=== PATIENT | male | born 1945 | race Caucasian/White ===

== ENCOUNTER → 2016-06-06 | Outpatient (CLI) | payer OTHER, BC | LOC: MMPC 09:00 | PROVIDERS: ATTEND Physician Assistant Medical | DX: L30.8 Other specified dermatitis (principal) | CPT/HCPCS: 99213; G0463 ==

== ENCOUNTER → 2016-06-14 | Outpatient (CLI) | payer OTHER, BC ==
[2016-06-14 14:04] LABS: ASPARTATE AMINO TRANSFERASE 31 IU/L (21-57); BILIRUBIN,TOTAL 0.5 mg/dL (0.3-1.2); BLOOD UREA NITROGEN 8 mg/dL (7-22); BUN/CREATININE RATIO 11.42 (6-20); CALCIUM 9.6 mg/dL (8.7-10.7); CHLORIDE 104 meq/L (98-112); CREATININE 0.7 mg/dL (0.70-1.50); EST GLOMERULAR FILTRATION > 60 (>60 ml/min/1.73m(2)); GLUCOSE 96 mg/dL (78-110); HDL CHOLESTEROL 54 mg/dL (40-150); POTASSIUM 4.4 meq/L (3.8-5.2); SODIUM 139 meq/L (135-145); TOTAL PROTEIN 7.3 g/dL (6.1-8.0); TRIGLYCERIDES 343 mg/dL (44-200)
[2016-06-14 15:38] LABS: BASOPHILS # (AUTO) 0.14 10*3/UL; BASOPHILS % (AUTO) 1.4 % (0-1); EOSINOPHILS % (AUTO) 5.3 % (0-8); HEMATOCRIT 38.8 % (42.0-52.0); HEMOGLOBIN 14.3 g/dL (14.0-18.0); IMM GRAN % (AUTO) 0.6 % (0-5); IMM GRAN# (AUTO) 0.06 10*3/UL; LYMPHOCYTES % (AUTO) 39.4 % (10-50); MEAN CORPUSCULAR HGB CONC 36.9 g/dL (33-37); MEAN PLATELET VOLUME 8.6 FL (7.4-12.2); MONOCYTES # (AUTO) 1.31 10*3/UL (0.3-0.8); MONOCYTES % (AUTO) 12.9 % (5-15); NEUTROPHILS % (AUTO) 40.4 % (50-80); PLATELET MORPHOLOGY COMMENT NORMAL MORPHOLOGY (NORM); RDW COEFFICIENT OF VARIATION 17.2 % (11.5-14.5); RED BLOOD COUNT 4.08 10^6/uL (4.70-6.10); RETIC COUNT 0.0694 10(6)/uL (0.0380-0.1130); WHITE BLOOD COUNT 10.15 10^3/uL (4.8-10.8)
== END ==
LOC: LAB 13:26
PROVIDERS: ATTEND Internal Medicine
DX: D58.9 Hereditary hemolytic anemia, unspecified (principal); E78.5 Hyperlipidemia, unspecified; K21.9 Gastro-esophageal reflux disease without esophagitis; F17.201 Nicotine dependence, unspecified, in remission
CPT/HCPCS: 36415; 80053; 80061; 82550; 82728; 83615; 85025; 85045

== ENCOUNTER → 2016-06-23 | Outpatient (CLI) | payer OTHER, BC | LOC: MMPC 11:11 | PROVIDERS: ATTEND Internal Medicine | DX: J44.9 Chronic obstructive pulmonary disease, unspecified (principal); D64.9 Anemia, unspecified; E78.5 Hyperlipidemia, unspecified | CPT/HCPCS: 99214; G0463 ==

== ENCOUNTER → 2016-08-15 | Outpatient (CLI) | payer OTHER, BC | LOC: MMPC 11:11 | PROVIDERS: ATTEND Internal Medicine | DX: K62.5 Hemorrhage of anus and rectum (principal) | CPT/HCPCS: 99213; G0463 ==

== ENCOUNTER → 2016-09-01 08:13 | Emergency (ER) | payer OTHER, BC ==
[~2016-09-01 08:13] MED LIST: IPRATROPIUM/ALBUTEROL SULFATE 3 ML NEB NEB ONE; LEVOFLOXACIN 250 MG TABLET PO ONE; LEVOFLOXACIN 500 MG TABLET PO ONE; methylPREDNISolone 125 MG/2 ML VIAL IVP ONE
[2016-09-01] MEDS: NORMAL SALINE 10 ML SYRINGE FLUSH IVP PRN ×2 (08:20→10:08)
[2016-09-01 08:38] VITALS: TEMP 97.6
--- NOTE | 2016-09-01 08:41 | EKG ---
[address] [address] Measurements Intervals [place] Rate: 105 P: CT: 0 QRS: 54 QRSD: 112 T: 62 QT: 363 QTc: 424 Interpretive Statements SUPRAVENTRICULAR TACHYCARDIA PROBABLE ATRIAL FLUTTER LOW QRS VOLTAGE IN PRECORDIAL LEADS RIGHT BUNDLE BRANCH BLOCK POSSIBLE SEPTAL MYOCARDIAL INFARCTION PROBABLY OLD Compared to ECG 12/20/2015 09:43:34 Right bundle-branch block now present Myocardial infarct finding now present Sinus tachycardia no longer present T-wave abnormality no longer present Electronically Signed On 09-01-16 11:04:05 MDT by Phong Brewer [email or web address]
--- NOTE | 2016-09-01 08:43 | PDOC ---
Dyspnea HPI - General Chief Complaint: Dyspnea Stated Complaint: DYSPNEA SINCE MONDAY Date Seen by Provider: 09/01/16 Time Seen by Provider: 08:39 - History of Present Illness Initial Comments: Patient is a very nice 71-year-old gentleman who has for about 2-3 days has been having increasing dyspnea shortness of breath and cough. He thinks she's had a low-grade temperature up to around 100. He has had cardiac issues including cardiac stent placement known coronary artery disease never had congestive heart failure or fluid overload that he is aware of. He has had a couple neb treatments morning don't seem to really be helping him so far. He denies any active chest pain. Denies any nausea vomiting diarrhea or other illness sort of symptoms. He is coughing up some sputum which he says is marrero in color. - Patient Home Medications Home Medications: Home Medications Multivitamins W-Minerals [Multivitamin] 1 each PO DAILY 03/17/10 Aspirin 1 tab ORAL DAILY #0 tab 05/07/12 Ascorbic Acid [Ascorbic Acid with Rh] 1 tab PO BID #60 tab 07/26/13 Finasteride 1 tab PO DAILY #0 tab 01/19/16 Gabapentin 1 cap ORAL TID #0 capsule 01/19/16 Nitroglycerin SL Tab [Nitrostat Sl Tab] 0.4 mg SL PRN PRN #1 bottle 01/19/16 Albuterol Sulfate [Proair Hfa] 1 - 2 puff INH Q4-6H #1 inhaler 06/23/16 Fluticasone Furoate [Arnuity Ellipta] 1 puff INH QD #10 puff 06/23/16 Losartan Potassium 1 tab PO QD #30 tab 06/23/16 Metoprolol Succinate 1 tab PO DAILY #30 tab 06/23/16 Omeprazole 1 cap PO QPM #30 cap 06/23/16 Simvastatin 1 tab ORAL QHS #30 tab 06/23/16 Umeclidinium Brm/Vilanterol Tr [Anoro Ellipta 62.5-25 Mcg Inh] 1 each IH QD #10 inh 06/23/16 Acetaminophen [Tylenol] 1,000 mg PO PRN PRN 09/01/16 - Patient Allergies Allergies/Adverse Reactions: Allergies Allergy/AdvReac Type Severity Reaction Status Date / Time tirofiban HCl monohydrate Allergy Severe CONVULSIONS Verified 05/25/17 08:27 [From Aggrastat] Past Medical History - heen HEENT History: Denies History, Hard of Hearing Additional HEENT History: WEARS GLASSES, HAGER'S ESOPHAGUS Cardiovascular History: Previous KS, CAD Additional Cardiovasular History: KS's in 2000, 2001 and 2012--each KS included stent placements for a total of 3 stents (one per KS). 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 Psychiatric History: Denies History History of Sexually Transmitted Diseases: No Male Reproductive History: Denies History Cancer History: Denies History In Past Year Been Physically Harmed or Verbally Threatened: No History of MDRO: No History of Other Communicable Diseases: No Tobacco Use: Former Smoker Alcohol Use: Occasionally How much alcohol do you normally drink a day?: DAILY Substance Use Type: None Previous Surgical History: Yes Type / Date of Surgery: CORONARY ANGIOGRAM/CORONARY STENT/UPPER ENDOSCOPY/ INGUINAL HERNIORRHAPHY/ORTHOSCOPIC SHOULDER SURGERY/L ELBOW SURGERY/L LEG PINNING/ROTATOR CUFF REPAIR/VERTEBRAL FUSION/LICHA/SILVANO Anesthesia Reactions: No Malignant Hyperthermia: No Significant Family History: Heart disease Past Medical History Reviewed: Reviewed - No Changes ROS - Limitations ROS Limitations: No Limitations Constitution: REPORTS: Denies Symptoms Neurological: REPORTS: Denies Neuro Symptoms Gastrointestinal: REPORTS: Denies GI Symptoms Dyspnea Physical Exam - General Appearance General Appearance: REPORTS: Alert, Cooperative, No Acute Distress - HEENT HEENT: POSITIVE: Head Inspection Nml, Other (He does have some erythema in his oropharynx no obvious purulence ulcerations or other abnormal findings there. Neck is supple without lymphadenopathy.) - Respiratory Respiratory: REPORTS: Other (Patient has increased work of breathing. He has fairly clear breath sounds but clearly labored. He does have frequent cough.) - Cardiovascular Cardiovascular: REPORTS: Regular Rate and Rhythm (Regular rate and rhythm) - Abdomen Abdomen: Soft: (All Quadrants), Normal Bowel Sounds: (All Quadrants), Denies Tenderness: (All Quadrants) - Skin Skin: REPORTS: Intact, Normal For Race, Warm, Dry - Neurological / Psychological Neurological: POSITIVE: Affect Apporpriate Vital Signs - Recent Vital Signs Vital Signs: Vital Signs (Last 8 hours) Temp Pulse Resp BP Pulse Ox 09/01/16 08:14 97.6 F 116 H 22 131/75 95 Discharge Condition: Stable
[2016-09-01 09:10] LABS: BLOOD UREA NITROGEN 8 mg/dL (7-22); CALCIUM 9.1 mg/dL (8.7-10.7); EST GLOMERULAR FILTRATION > 60 (>60 ml/min/1.73m(2)); SERUM ALBUMIN 4.1 g/dL (3.5-4.8)
[2016-09-01 09:21] LABS: HEMATOCRIT 30.2 % (42.0-52.0); HEMOGLOBIN 14.6 g/dL (14.0-18.0); MEAN CORPUSCULAR HEMOGLOBIN 49.2 PG (27-31); MEAN CORPUSCULAR HGB CONC 48.3 g/dL (33-37); MEAN CORPUSCULAR VOLUME 101.7 FL (80-90); MEAN PLATELET VOLUME 8.8 FL (7.4-12.2); RED BLOOD COUNT 2.97 10^6/uL (4.70-6.10)
--- NOTE | 2016-09-01 09:23 | DI ---
PA /LATERAL CHEST X-RAY, 09/01/2016 8:36 AM : Clinical History: Cough. Dyspnea. Previous Exam: 12/19/2015. There is no acute soft tissue or bony abnormality. Heart size is normal. A coronary artery stent is p resent in the LAD. Lungs are clear. Mediastinal structures are normal. There are no pulmonary nodules . Readin. Normal chest x-ray. There has been no interval change. 2. Coronary artery disease.
[2016-09-01 09:37] LABS: BAND NEUTROPHILS % 1 % (0-10); BASOPHILS % (MANUAL) 0 % (0-1); EOSINOPHILS % (MANUAL) 0 % (0-8); LYMPHOCYTES % (MANUAL) 22 % (10-50); MONOCYTES % (MANUAL) 14 % (0-12); NEUTROPHILS % (MANUAL) 63 % (50-80); WBC MORPHOLOGY COMMENT NORMAL MORPHOLOGY (NORM)
[2016-09-01 09:38] LABS: PLATELET MORPHOLOGY COMMENT NORMAL MORPHOLOGY (NORM); RBC MORPHOLOGY COMMENT SEE COMMENTS (NORM)
--- NOTE | 2016-09-01 10:14 | PDOC ---
Transfer of Care - Care Accepted Time Care Transferred: 09:00 Report from Transferring Physician Received: Yes (Dr. Whitfield) MDM / ED Course: The patient is a 71-year-old male who presented to the emergency department after being seen this morning at the walk-in clinic and referred to the ER with complaints of increased shortness of breath. 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 He reports over the past 3 or 4 days he has had increased cough which is mostly dry however occasionally productive of mucousy sputum. He also has had some low-grade fevers over the past 24 hours. He denies chest pain or increased pain or swelling in his legs. He states he has been coughing to the point where he has not slept for the past couple of days. He was initially seen at the walk-in clinic and had a rapid strep that was negative as well as a neb treatment. He seemed to be having significant work of breathing and was referred to the emergency department. He was initially evaluated per Dr. Whitfield. The patient has now had 2 neb treatments at home, one at the clinic in one here in the emergency department. Blood work and chest x-ray were pending when Dr. Whitfield transferred care at 9:00. By the time I evaluated the patient the patient had returned from x-ray and was feeling significantly better. His oxygen saturations remained in the mid 90s on room air on presentation and at the time of my evaluation. The patient states that he is subjectively feeling much better. Home Medications: Home Medications Multivitamins W-Minerals [Multivitamin] 1 each PO DAILY 03/17/10 Aspirin 1 tab ORAL DAILY #0 tab 05/07/12 Ascorbic Acid [Ascorbic Acid with Rh] 1 tab PO BID #60 tab 07/26/13 Finasteride 1 tab PO DAILY #0 tab 01/19/16 Gabapentin 1 cap ORAL TID #0 capsule 01/19/16 Nitroglycerin SL Tab [Nitrostat Sl Tab] 0.4 mg SL PRN PRN #1 bottle 01/19/16 Albuterol Sulfate [Proair Hfa] 1 - 2 puff INH Q4-6H #1 inhaler 06/23/16 Fluticasone Furoate [Arnuity Ellipta] 1 puff INH QD #10 puff 03/16/17 Losartan Potassium 1 tab PO QD #30 tab 06/23/16 Metoprolol Succinate 1 tab PO DAILY #30 tab 06/23/16 Omeprazole 1 cap PO QPM #30 cap 06/23/16 Simvastatin 1 tab ORAL QHS #30 tab 06/23/16 Umeclidinium Brm/Vilanterol Tr [Anoro Ellipta 62.5-25 Mcg Inh] 1 each IH QD #10 inh 06/23/16 Acetaminophen [Tylenol] 1,000 mg PO PRN PRN 09/01/16 Guaifenesin/Codeine Phosphate [Guaifen-Codeine 100-10 mg/5 ml] 5 - 10 ml PO Q6H PRN #120 ml 09/01/16 Levofloxacin Tab [Levaquin Tab] 750 mg PO DAILY #7 tablet 09/01/16 predniSONE Tab [Deltasone Tab] 40 mg PO DAILY #10 tab 09/01/16 Allergies/Adverse Reactions: Allergies tirofiban HCl monohydrate [From Aggrastat] Allergy (Severe, Verified 09/01/16 08 :27) CONVULSIONS Vital Signs Reviewed: Yes Nurse's Notes Reviewed & Considered: Yes - Pending Patient Care Items Pending Patient Care Items: POSITIVE: Labs, X-ray Results - Re-Evaluation of Patient Disposition of Patient: POSITIVE: Discharged Counseled: POSITIVE: Patient, Family, RE: Lab Results, RE: Radiology Results, RE : DX Pending Test Results Documented: Yes Clinical Impression Documented: Yes - Results Reviewed Lab Results Reviewed by Me: Yes Lab Results: Laboratory Results 09/01/16 09/01/16 Range/Units 08:50 09:00 WBC 11.71 H (4.8-10.8) 10^3/uL RBC 2.97 L (4.70-6.10) 10^6/uL Hgb 14.6 (14.0-18.0) g/dL Hct 30.2 L (42.0-52.0) % MCV 101.7 H (80-90) FL MCH 49.2 H (27-31) PG MCHC 48.3 H (33-37) g/dL Plt Count 301 (140-350) 10*3/uL MPV 8.8 (7.4-12.2) FL Neutrophils % (Manual) 63 (50-80) % Band Neutrophils % 1 (0-10) % Lymphocytes % (Manual) 22 (10-50) % Monocytes % (Manual) 14 H (0-12) % Eosinophils % (Manual) 0 (0-8) % Basophils % (Manual) 0 (0-1) % Metamyelocytes % Not Reportable Myelocytes % Not Reportable Promyelocytes % Not Reportable Blast Cells Not Reportable WBC Morphology Comment Normal morphology (NORM) Plt Morphology Comment Normal morphology (NORM) RBC Morph Comment See comments (NORM) D-Dimer 0.38 (0.00-0.59) mg/L Sodium 136 (135-145) meq/L Potassium 3.5 L (3.8-5.2) meq/L Chloride 102 (98-112) meq/L Carbon Dioxide 21 L (23-33) meq/L Anion Gap 13 (5-20) BUN 8 (7-22) mg/dL Creatinine 0.8 (0.70-1.50) mg/dL Estimated GFR > 60 (>60 ml/min/1.73m(2)) BUN/Creatinine Ratio 10.00 (6-20) Glucose 115 H (78-110) mg/dL Calculated Osmolality 280.0 (267-292) mOsm/kg Lactic Acid 3.2 H (0.70-2.10) MMOL/L Calcium 9.1 (8.7-10.7) mg/dL Total Bilirubin 1.0 (0.3-1.2) mg/dL AST 38 (21-57) IU/L ALT 35 (21-72) IU/L Alkaline Phosphatase 96 (38-126) IU/L Troponin I < 0.012 (< 0.040) ng/mL NT-Pro-B Natriuret Pep 291 H (0-125) PG/ML Total Protein 7.5 (6.1-8.0) g/dL Albumin 4.1 (3.5-4.8) g/dL Globulin 3.4 (2.50-4.10) g/dL Albumin/Globulin Ratio 1.20 L (1.3-2.0) mg/g EKG Interpreted/Reviewed By Me:: Yes EKG Interpretation:: POSITIVE: Other (sinus tachycardia with significant artifact, no obvious ST segment changes) - Consult Recommendations:: History chest x-ray shows no obvious pneumonia per radiologist. His blood work is essentially unremarkable except for a mildly elevated lactate and mildly elevated white blood cell count. His troponin is normal and his d-dimer is normal. The patient does have a history of pulmonary fibrosis secondary to radiation exposure from working [place] the [place]. His oxygen saturations remain in the mid 90s on room air and subjectively the patient is feeling much better. Treatment options were discussed including admitting the patient for initial treatment versus outpatient management. The patient preferred to go home at this time and I feel the patient is stable to do so. He was given a dose of Solu-Medrol 125 mg IV as well as Levaquin 750 mg by mouth. The patient has bronchitis and COPD exacerbation and may have an early pneumonia as well. He was prescribed Levaquin 750 mg daily for 7 days as well as prednisone 40 mg daily for 5 days. He will continue neb treatments as previously prescribed. He will continue his oxygen and CPAP at night. He was prescribed Robitussin with codeine as needed for cough. He will return to the emergency room if increased shortness of breath, any worsening or change in symptoms. He will follow-up with primary care in 3-5 days. Patient Care Time - Estimated PCT Patient Care Time (In Minutes): 20 Vital Signs - Recent Vital Signs Vital Signs: Vital Signs (Last 8 hours) Temp Pulse Resp BP Pulse Ox 09/01/16 08:14 97.6 F 116 H 22 131/75 95 - VS Reviewed Vital Signs Reviewed: Yes Discharge Clinical Impression: Reactive airway disease, Pulmonary fibrosis, Bronchitis Discharge Disposition: Discharged to Home Condition: Stable Prescriptions / Orders: predniSONE Tab [Deltasone Tab] 40 mg PO DAILY #10 tab Guaifenesin/Codeine Phosphate [Guaifen-Codeine 100-10 mg/5 ml] 5 - 10 ml PO Q6H PRN #120 ml PRN Reason: Cough Levofloxacin Tab [Levaquin Tab] 750 mg PO DAILY #7 tablet Patient Instructions Given at Discharge: Acute Bronchitis (ED), Reactive Airways Disease (ED) Additional Instructions: Her chest x-ray did not show any evidence of pneumonia however I suspect there may be an early pneumonia or at least bronchitis. You have been started on Levaquin 750 mg daily for 7 days which is an antibiotic. In addition you have been prescribed prednisone 40 mg daily for 5 days which is for inflammation in your lungs. You've also been given Robitussin with codeine which she can take one or 2 teaspoons every 6 hours as needed for cough. Continue nebulizer treatments as previously prescribed. Return to the emergency room if increased shortness of breath, any worsening or change in symptoms. Recommend follow-up with primary care in 3-5 days. Follow Up With: EILO BAGLEY [Primary Care Provider] -
[2016-09-01 10:48] VITALS: RESP 18
== END | disposition home or self-care (01) ==
LOC: ER 08:13
DX: J70.1 Chronic and other pulmonary manifestations due to radiation (principal); J45.901 Unspecified asthma with (acute) exacerbation; J20.9 Acute bronchitis, unspecified; R06.02 Shortness of breath; R05 Cough; I25.10 Atherosclerotic heart disease of native coronary artery without angina pectoris; N40.0 Benign prostatic hyperplasia without lower urinary tract symptoms; Y92.64 Mine or pit as the place of occurrence of the external cause; Y99.0 Civilian activity done for income or pay
CPT/HCPCS: 36415; 71020; 80053; 83605; 83880; 84484; 85007; 85379; 87040; 93005; 93010; 94640; 96374; 99283 ×2; J2930; J7620

== ENCOUNTER → 2016-09-01 | Outpatient (CLI) | payer OTHER, BC | LOC: MOB LAB 08:25 | DX: J02.9 Acute pharyngitis, unspecified (principal); R05 Cough; J44.9 Chronic obstructive pulmonary disease, unspecified; G47.33 Obstructive sleep apnea (adult) (pediatric) | CPT/HCPCS: 87880; 94640; 99213; G0463 ==

== ENCOUNTER → 2016-11-01 | Outpatient (CLI) | payer OTHER, BC | LOC: LAB 12:56 | PROVIDERS: ATTEND Urology | DX: R97.20 Elevated prostate specific antigen [PSA] (principal) | CPT/HCPCS: 36415; 84153 ==